=== PATIENT | male | born 1995 | race Two or more races ===

== ENCOUNTER 2016-12-10 11:47 | Emergency (ER) | payer MEDICAID ==
[~2016-12-10] VITALS: Ht 170.2 cm; Wt 63.0 kg
[2016-12-10 12:25] VITALS: BP 106/74
== END 2016-12-10 18:50 | disposition home or self-care (01) ==
LOC: ER 18:11
DX: L02.416 Cutaneous abscess of left lower limb (principal)
CPT/HCPCS: 99283